=== PATIENT | male | born 1955 | race Caucasian/White ===

== ENCOUNTER → 2023-10-12 06:28 | Day surgery (SDC) | payer BC, SELFPAY | LOC: GI 06:28 | PROVIDERS: ATTENDING PHYSICIAN Internal Medicine; FAMILY PHYSICIAN Internal Medicine | DX: Z12.11 Encounter for screening for malignant neoplasm of colon (principal); K55.20 Angiodysplasia of colon without hemorrhage; K57.30 Diverticulosis of large intestine without perforation or abscess without bleeding; D12.3 Benign neoplasm of transverse colon; K63.5 Polyp of colon | CPT/HCPCS: 45385; 45380; 88305 ==